=== PATIENT | female | born 1980 | race Caucasian/White ===

== ENCOUNTER 2016-12-19 14:51 | Emergency (ER) | payer OTHER ==
[~2016-12-19] VITALS: Ht 167.6 cm; Wt 75.0 kg
[~2016-12-19 14:51] MED LIST: ADDERALL30 MG PO; ATIVAN1 MG PO; BENADRYL50 MG PO; CYMBALTA30 MG PO; CYMBALTA60 MG PO; LAMICTAL25 MG PO; METOPROLOL SUCC25 MG PO; SUMATRIPTAN SU100 MG PO; TOPAMAX200 MG PO; ZOFRAN4 MG PO
[2016-12-19] MEDS ORDERED: ATARAX,VISTARIL50 MG PO (15:27)
[2016-12-19] MEDS ORDERED: AMITRIPTYLINE H25 MG PO (15:28)
[2016-12-19] MEDS ORDERED: TRAZODONE HCL100 MG PO (15:28)
[2016-12-19] MEDS ORDERED: TIZANIDINE HCL4 MG PO (15:30)
[2016-12-19] MEDS ORDERED: MORPHINE SULFAT30 M2 PO (15:30)
[2016-12-19] MEDS ORDERED: SERTRALINE HCL25 MG PO (15:31)
[2016-12-19] MEDS ORDERED: FLUOXETINE HCL20 M1 PO (15:32)
[2016-12-19] MEDS ORDERED: PRAZOSIN HCL2 MG PO (15:32)
[2016-12-19] MEDS ORDERED: HYDROCODON-ACE1 EAC7 PO (15:33)
[2016-12-19] MEDS ORDERED: INDERAL40 MG PO (15:33)
[2016-12-19 18:55] VITALS: BP 113/68
== END 2016-12-19 19:06 | disposition home or self-care (01) ==
LOC: EME 14:51
DX: G43.909 Migraine, unspecified, not intractable, without status migrainosus (principal); Z85.850 Personal history of malignant neoplasm of thyroid; F17.200 Nicotine dependence, unspecified, uncomplicated
CPT/HCPCS: 99281; 99284; J1100; J1200; J1885